=== PATIENT | male | born 1975 | race Two or more races ===

== ENCOUNTER 2023-07-21 19:42 | Emergency (ER) | payer OTHER, SELFPAY ==
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
[2023-07-21 20:01] VITALS: BP 147/83; BP 152/78; PULSE 75; PULSE 80; RESP 18; TEMP 36.6; O2SAT 98; BMI 28.4
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
[2023-07-21] MEDS: Ibuprofen 600 MG TABLET PO (21:10)
== END 2023-07-21 22:51 | disposition home or self-care (01) ==
PROVIDERS: Emergency Provider Emergency Medicine
DX: S06.0X0A Concussion without loss of consciousness, initial encounter (principal); S40.012A Contusion of left shoulder, initial encounter; R51.9 Headache, unspecified; M25.512 Pain in left shoulder; V43.62XA Car passenger injured in collision with other type car in traffic accident, initial encounter; Y93.9 Activity, unspecified; Y92.410 Unspecified street and highway as the place of occurrence of the external cause; Y99.9 Unspecified external cause status
CPT/HCPCS: 70450; 72125; 73030; 99283; 99284